=== PATIENT | male | born 1935 | race Caucasian/White ===

== ENCOUNTER 2018-02-27 09:53 | Emergency (ER) | payer BC, OTHER ==
[2018-02-27 10:26] LABS: Absolute Monocytes 0.8 K/uL (0.1-1.3); Absolute Neutrophil 5.8 K/uL (1.8-8.0); Basophils % 1.5 % (0-1.3); Eosinophils % 10.3 % (0-4.4); Hematocrit 40.8 % (39.6-49.0); Lymphocytes % 20.5 % (15.3-44.8); MPV 9.6 fL (7.6-11.3); Monocytes % 8.5 % (3.3-12.3); RBC Red Blood Cell Count 4.61 M/uL (4.33-5.43)
[2018-02-27 10:32] LABS: Protime INR 1.05
[2018-02-27 10:44] LABS: ALT/SGPT 14 U/L (12-78); AST/SGOT 9 U/L (15-37); Albumin 3.3 g/dL (3.4-5.0); Alkaline Phosphatase 84 U/L (45-117); BUN Blood Urea Nitrogen 29 mg/dL (7-18); Bicarbonate 26 mmol/L (21-32); Bilirubin Direct 0.2 mg/dL (0-0.2); Bilirubin Total 0.4 mg/dL (0.2-1.0); CKMB Creatine Kinase MB 1.3 ng/mL (0.3-3.6); Creatine Phosphokinase 57 U/L (39-308); Glucose Level 188 mg/dL (74-106); Lipase 138 U/L (73-393); Magnesium 2.6 mg/dL (1.8-2.4); NT PRO-BNP 66 pg/mL (<450); Potassium 4.2 mmol/L (3.5-5.1); Protein, Total 7.3 g/dL (6.4-8.2); Sodium Level 139 mmol/L (136-145); Troponin (Emerg Dept Use Only) < 0.02 ng/mL (0.0-0.045)
--- NOTE | 2018-02-27 10:45 | RAD REPORT ---
EXAM DESCRIPTION: CT - CTHCSPWOC - 02/27/2018 10:29 am CLINICAL HISTORY: Trauma, head and neck injury. PAIN COMPARISON: None TECHNIQUE: Axial 5 mm thick images of the head were obtained. Axial 2 mm thick images of the cervical spine were obtained with sagittal and coronal reconstruction images generated and reviewed. All CT scans are performed using dose optimization technique as appropriate and may include automated exposure control or mA/KV adjustment according to patient size. FINDINGS: CT HEAD WITHOUT CONTRAST: No acute hemorrhage, hydrocephalus or extra-axial collection is identified.Moderate brain atrophy is seen.No areas of brain edema or midline shift. The paranasal sinuses and mastoids are clear.The calvarium is intact. CT CERVICAL SPINE WITHOUT CONTRAST: No fracture or subluxation.Multilevel degenerative changes are present involving the lower cervical l evels with disc thinning and posterior osteophyte formation.No prevertebral soft tissues swelling is identified. IMPRESSION: No acute intracranial or cervical spine findings. Moderate lower cervical degenerative changes.
--- NOTE | 2018-02-27 10:50 | RAD REPORT ---
EXAM DESCRIPTION: CT - Thoracic Spine W/o Cont - 02/27/2018 10:29 am CLINICAL HISTORY: Radiculopathy. PAIN COMPARISON: No comparisons TECHNIQUE: Axial CT imaging through the thoracic spine was performed with coronal and sagittal re-fo rmatted images. All CT scans are performed using dose optimization technique as appropriate and may include automated exposure control or mA/KV adjustment according to patient size. FINDINGS: Vertebral body heights and disc spaces are maintained. A compression fracture is not prese nt. Anterior osteophytosis is present in the lower thoracic spine. Thoracic spine alignment is within normal limits. No paraspinal masses or hematoma. Mild opacity is present in the lung bases with a moderate axial hiatal hernia. IMPRESSION: No acute thoracic spine abnormality.
[2018-02-27] MEDS ORDERED: NA CHLORIDE 0.9% 1,000 ML ONE ×2 (10:53→12:52)
[2018-02-27] MEDS ORDERED: HYDROCODONE/APAP 10/325 TAB ONE (10:53)
--- NOTE | 2018-02-27 10:53 | RAD REPORT ---
EXAM DESCRIPTION: CT - Spine Lumbar Wo Con - 02/27/2018 10:29 am CLINICAL HISTORY: Radiculopathy. PAIN COMPARISON: No comparisons TECHNIQUE: Axial noncontrast CT imaging of the lumbar spine was performed with coronal and sagittal re-formatted images. All CT scans are performed using dose optimization technique as appropriate and may include automated exposure control or mA/KV adjustment according to patient size. FINDINGS: Diffuse osteopenia is seen. No acute compression deformity is seen. 6 mm degenerative ante rolisthesis of L4 on 5 is present. Paraspinal tissues are normal in thickness. No paraspinal abscess or hematoma seen. Vacuum disc degeneration is present at several levels including L1-2, L4-5 and L5-S1. Schmorl nodes a re present L4. Prominent lower lumbar degenerative changes with facet hypertrophy. IMPRESSION: No acute lumbar spine abnormality. Moderate lower lumbar degenerative changes.
--- NOTE | 2018-02-27 11:17 | RAD REPORT ---
EXAM DESCRIPTION: RAD - Chest Single View - 02/27/2018 11:11 am CLINICAL HISTORY: TRAUMA Chest pain. COMPARISON: No comparisons FINDINGS: Portable technique limits examination quality. The lungs are grossly clear. The heart is mildly enlarged in size. No displaced fractures. IMPRESSION: Mild cardiomegaly.
--- NOTE | 2018-02-27 12:48 | ER ---
Nurse's Notes [facility] Name: Lee Bolanos Age: 82 yrs Sex: Male : 1935 Arrival Date: 02/27/2018 Time: 10:05 Bed 2 Private MD: Diagnosis: Syncope and collapse Presentation: 02/27 10:07 Presenting complaint: EMS states: He was at the [place], standing and got short of breath jl7 and lightheaded, fell back and hit his head. Unsure of LOC. BP 80/40. Care prior to arrival: None. Mechanism of Injury: Fall from standing position. Trauma event details: Injury occurred in the [facility], Injury occurred: in a public building. Injury occurred: February 27, 2018. 10:07 Acuity: DAHLIA 2 jl7 10:07 Method Of Arrival: EMS: [facility] jl7 10:10 Transition of care: patient was received from another setting of care (ambulatory [facility]), [place] clinic. Onset of symptoms was February 27, 2018. Risk Assessment: Do you want to hurt yourself or someone else? Patient reports no desire to harm self or others. Initial Sepsis Screen: Does the patient meet any 2 criteria? Systolic BP < 90 mmHg. HR > 90 bpm. Yes Does the patient have a suspected source of infection? No. Patient's initial sepsis screen is negative. Trauma Activation: Alert Physician: ED Physician; Name: Robertkyaeleanor; Notified At: 09:55; Arrived At: 09:55 Physician: General Surgeon; Name: ; Notified At: 09:55; Arrived At: Physician: Radiology; Name: ; Notified At: 09:55; Arrived At: 09:55 Physician: Respiratory; Name: ; Notified At: 09:55; Arrived At: Physician: Lab; Name: Domenica; Notified At: 09:55; Arrived At: 09:56 Historical: - Allergies: 10:19 No Known Allergies; jl7 - Home Meds: 10:36 furosemide 80 mg Oral tab 1 tab 2 times per day [Active]; carvedilol 25 mg oral tab 1 jl7 tab 2 times per day [Active]; dicyclomine 20 mg Oral tab 1 tab 3 times per day [Active]; finasteride 5 mg oral tab 1 tab once daily [Active]; simvastatin 20 mg Oral tab 1 tab once daily [Active]; valsartan 40 mg oral tab 1 tab 2 times per day [Active]; Klor-Con 10 10 mEq Oral TbER 1 tab once daily [Active]; glipizide 10 mg Oral tab 1 tab once daily [Active]; tamsulosin 0.4 mg oral cp24 1 cap once daily [Active]; spironolactone 25 mg Oral tab 1 tab once daily [Active]; pantoprazole 40 mg oral TbEC 1 tab once daily [Active]; duloxetine 60 mg oral cpDR 1 cap once daily [Active]; clopidogrel 75 mg oral tab 1 tab once daily [Active]; - PMHx: 10:19 Hypertension; Hyperlipidemia; jl7 10:36 BPH; Diabetes - NIDDM; jl7 - Immunization history:: Adult Immunizations up to date. - Social history:: Patient/guardian denies using alcohol, street drugs, The patient lives with family, Smoking status: Patient/guardian denies using tobacco. - Immunization history: Last tetanus immunization: unknown. - Family history:: not pertinent. - Ebola Screening: : No symptoms or risks identified at this time. Screenin:51 Abuse screen: Denies threats or abuse. Denies injuries from another. Tuberculosis jl7 screening: No symptoms or risk factors identified. 10:00 Nutritional screening: No deficits noted. Fall Risk Fall in past 12 months (25 points). jl7 IV access (20 points). Total [place] Fall Scale indicates High Risk Score (45 or more points). Fall prevention measures have been instituted. Side Rails Up X 2 Placed Close to Nursing Station Frequent Obs/Assessments Occuring As available patient and family educated on Fall Prevention Program and Strategies. Primary Survey: 10:00 NO uncontrolled hemorrhage observed. Breathing/Chest: Respiratory pattern: regular, jl7 Respiratory effort: spontaneous, unlabored, Breath sounds: clear, bilaterally. Chest inspection: symmetrical rise and fall of the chest. Circulation: Heart tones present. Skin color: pink. Disability Alert. Exposure/Environment: There is no evidence of uncontrolled external bleeding. 10:15 Reassessment Airway Airway Breathing/Chest Respiratory pattern Regular Respiratory jl7 effort Spontaneous Unlabored Breath sounds Clear Diminished Chest inspection Symmetrical Circulation Heart tones Present Color [place] Disability Alert. Assessment: 10:07 General: Appears in no apparent distress. uncomfortable, Behavior is calm, cooperative, jl7 appropriate for age. Pain:. Pain: Complains of pain in right lower quadrant and left lower quadrant Pain does not radiate. Pain currently is 6 out of 10 on a pain scale. Is continuous. Neuro: Level of Consciousness is awake, alert, obeys commands, Oriented to person, place, time, situation. EENT: No signs and/or symptoms were reported regarding the EENT system. Cardiovascular: Heart tones S1 S2 present Patient's skin is warm and dry. Rhythm is regular. Respiratory: Airway is patent Respiratory effort is even, unlabored, Respiratory pattern is regular, symmetrical, Breath sounds are clear bilaterally. GI: Abdomen is flat, non-distended, Stools are reported to be normal. Last BM at 02:30. Bowel sounds present X 4 quads. Abd is soft X 4 quads Abdomen is tender to palpation in left upper quadrant and left lower quadrant. : No signs and/or symptoms were reported regarding the genitourinary system. Derm: Skin is pink, warm \T\ dry. Musculoskeletal: No signs and/or symptoms reported regarding the musculoskeletal system. 10:32 Reassessment: Pt returned from CT. jl7 10:45 Reassessment: Pt requesting hydrocodone-acetaminophen 10-325mg for his chronic neck, jl7 low back and right knee pain, ERD notified, see MAR for orders. 11:00 Reassessment: pt unable to provide urine sample at this time. jl7 12:00 Reassessment: Patient appears in no apparent distress at this time. No changes from jl7 previously documented assessment. Patient and/or family updated on plan of care and expected duration. Pain level reassessed. Patient is alert, oriented x 3, equal unlabored respirations, skin warm/dry/pink. 13:00 Reassessment: Patient and/or family updated on plan of care and expected duration. Pain jl7 level reassessed. Patient is alert, oriented x 3, equal unlabored respirations, skin warm/dry/pink. Vital Signs: 09:51 BP 72 / 45 LA; Pulse 115; Resp 17 S; Temp 97.5(O); Pulse Ox 97% on R/A; Weight 117.93 jl7 kg (R); Height 6 ft. 2 in. (187.96 cm) (R); Pain 6/10; 10:00 BP 82 / 57 RA; jl7 10:30 BP 86 / 74; Pulse 93; Resp 14 S; Pulse Ox 95% on R/A; jl7 11:30 BP 76 / 56; Pulse 102; Resp 16 S; Pulse Ox 95% on R/A; jl7 11:59 BP 90 / 57; Pulse 99; Resp 16 S; Pulse Ox 95% on R/A; jl7 13:00 BP 88 / 56; Pulse 79; Resp 16 S; Pulse Ox 95% on R/A; jl7 13:46 BP 88 / 72; Pulse 78; Resp 16 S; Pulse Ox 95% on R/A; jl7 09:51 Body Mass Index 33.38 (117.93 kg, 187.96 cm) jl7 Logan Coma Score: 09:51 Eye Response: spontaneous(4). Verbal Response: oriented(5). Motor Response: obeys jl7 commands(6). Total: 15. Trauma Score (Adult): 09:51 Eye Response: spontaneous(1); Verbal Response: oriented(1); Motor Response: obeys jl7 commands(2); Systolic BP: > 89 mm Hg(4); Respiratory Rate: 10 to 29 per min(4); Logan Score: 15; Trauma Score: 12 10:00 Eye Response: spontaneous(1); Verbal Response: oriented(1); Motor Response: obeys jl7 commands(2); Systolic BP: > 89 mm Hg(4); Respiratory Rate: 10 to 29 per min(4); Brody Score: 15; Trauma Score: 12 10:30 Eye Response: spontaneous(1); Verbal Response: oriented(1); Motor Response: obeys jl7 commands(2); Systolic BP: > 89 mm Hg(4); Respiratory Rate: 10 to 29 per min(4); Brody Score: 15; Trauma Score: 12 13:00 Eye Response: spontaneous(1); Verbal Response: oriented(1); Motor Response: obeys jl7 commands(2); Systolic BP: > 89 mm Hg(4); Respiratory Rate: 10 to 29 per min(4); Brody Score: 15; Trauma Score: 12 ED Course: 09:51 Patient maintains SpO2 saturation greater than 95% on room air. Thermoregulation: warm jl7 blanket given to patient. 09:51 Patient has correct armband on for positive identification. Placed in gown. Bed in low jl7 position. Call light in reach. Side rails up X2. 10:00 quality assurance monitor on. Pulse ox on. NIBP on. Warm blanket given. jl7 10:05 Patient arrived in ED. jl7 10:05 EKG done, by eeg technologist. reviewed by Giovana Suarez MD. sm3 10:08 Giovana Suarez MD is Attending Physician. ma2 10:10 Triage completed. jl7 10:10 Arm band placed on right wrist. jl7 10:14 Inserted saline lock: 22 gauge in left antecubital area, using aseptic technique. jb1 10:14 Initial lab(s) drawn, by me, sent to lab. Inserted saline lock: 20 gauge in right jb1 antecubital area, using aseptic technique. Blood collected. 10:27 Laura Hilliard, RN is Primary Nurse. jl7 10:29 CT Head C Spine In Process Unspecified. EDMS 10:29 CT Thoracic Spine Wo Cont In Process Unspecified. EDMS 10:29 CT Lumbar Spine Wo Con In Process Unspecified. EDMS 11:11 X-ray completed. Portable x-ray completed in exam room. Patient tolerated procedure tm4 well. 11:12 XRAY Chest (1 view) In Process Unspecified. EDMS 12:00 Inserted saline lock: 20 gauge in right wrist, using aseptic technique. jl7 12:00 No provider procedures requiring assistance completed. jl7 14:25 Patient transferred, IV remains in place. intact, No redness/swelling at site. jl7 Administered Medications: 10:51 Drug: NS 0.9% 1000 ml Route: IV; Rate: 1 bolus; Site: right antecubital; jl7 12:00 Follow up: IV Status: Completed infusion jl7 10:52 Drug: [place] 10 mg-325 mg 1 tabs Route: PO; jl7 11:50 Follow up: Response: No adverse reaction; Pain is decreased jl7 13:08 Drug: NS 0.9% 1000 ml Route: IV; Rate: 1 bolus; Site: right wrist; jl7 Intake: 11:59 IV: 1000ml; Total: 1000ml. jl7 13:47 IV: 1000ml; Total: 2000ml. jl7 Outcome: 12:47 ER care complete, transfer ordered by MD. ibrahim 13:49 Transferred by ground EMS to other acute care facility, Transfer form completed. jl7 13:49 Condition: stable 13:49 Discharge instructions given to patient, Instructed on the need for admit, Demonstrated understanding of instructions. 14:25 Patient's length of stay was not longer than 2 hours. jl7 14:26 Patient left the ED. jl7 Signatures: Dispatcher [employer] EDMS Jed Guzman jb1 Christelle Hanley tm4 Laura Hilliard RN RN jl7 Giovana Suarez MD MD ma2 Jody Sheppard 3 Corrections: (The following items were deleted from the chart) 12:30 11:59 BP 76 / 56; Pulse 102bpm; Resp 16bpm; Spontaneous; Pulse Ox 95% RA; jl7 jl7
--- NOTE | 2018-02-27 12:48 | EDPHYS ---
Physician Documentation [facility] Name: Lee Bolanos Age: 82 yrs Sex: Male : 1935 Arrival Date: 02/27/2018 Time: 10:05 Bed 2 Private MD: ED Physician Giovana Suarez HPI: 02/27 10:12 This 82 yrs old Male presents to ER via EMS with complaints of Fall Injury. ma2 10:12 Details of fall: The patient fell from an upright position, from a supine position. ma2 Onset: The symptoms/episode began/occurred suddenly, gradually, 1 hour(s) ago. Associated injuries: The patient sustained injury to the head, neck injury, injury to the low back. Severity of symptoms: At their worst the symptoms were moderate, in the emergency department the symptoms are unchanged. The patient has experienced similar episodes in the past. Historical: - Allergies: 10:19 No Known Allergies; jl7 - Home Meds: 10:36 furosemide 80 mg Oral tab 1 tab 2 times per day [Active]; carvedilol 25 mg oral tab 1 jl7 tab 2 times per day [Active]; dicyclomine 20 mg Oral tab 1 tab 3 times per day [Active]; finasteride 5 mg oral tab 1 tab once daily [Active]; simvastatin 20 mg Oral tab 1 tab once daily [Active]; valsartan 40 mg oral tab 1 tab 2 times per day [Active]; Klor-Con 10 10 mEq Oral TbER 1 tab once daily [Active]; glipizide 10 mg Oral tab 1 tab once daily [Active]; tamsulosin 0.4 mg oral cp24 1 cap once daily [Active]; spironolactone 25 mg Oral tab 1 tab once daily [Active]; pantoprazole 40 mg oral TbEC 1 tab once daily [Active]; duloxetine 60 mg oral cpDR 1 cap once daily [Active]; clopidogrel 75 mg oral tab 1 tab once daily [Active]; - PMHx: 10:19 Hypertension; Hyperlipidemia; jl7 10:36 BPH; Diabetes - NIDDM; jl7 - Immunization history:: Adult Immunizations up to date. - Social history:: Patient/guardian denies using alcohol, street drugs, The patient lives with family, Smoking status: Patient/guardian denies using tobacco. - Immunization history: Last tetanus immunization: unknown. - Family history:: not pertinent. - Ebola Screening: : No symptoms or risks identified at this time. ROS: 10:12 Constitutional: Negative for fever, chills, and weight loss, Neck: Negative for injury, ma2 pain, and swelling, Respiratory: Negative for shortness of breath, cough, wheezing, and pleuritic chest pain, Abdomen/GI: Negative for abdominal pain, nausea, diarrhea, and constipation, Allergy/Immunology: Negative for hives, rash, and allergies, Endocrine: Negative for neck swelling, polydipsia, polyuria, polyphagia, and marked weight changes. 10:12 Cardiovascular: Positive for syncope, Negative for chest pain, edema, orthopnea, palpitations, paroxysmal nocturnal dyspnea, acute changes. 10:12 All other systems are negative. Exam: 10:12 Constitutional: This is a well developed, well nourished patient who is awake, alert, ma2 and in no acute distress. Chest/axilla: Normal chest wall appearance and motion. Nontender with no deformity. No lesions are appreciated. Cardiovascular: Regular rate and rhythm with a normal S1 and S2. No gallops, murmurs, or rubs. Normal PMI, no JVD. No pulse deficits. Respiratory: Lungs have equal breath sounds bilaterally, clear to auscultation and percussion. No rales, rhonchi or wheezes noted. No increased work of breathing, no retractions or nasal flaring. Abdomen/GI: Soft, non-tender, with normal bowel sounds. No distension or tympany. No guarding or rebound. No evidence of tenderness throughout. MS/ Extremity: Pulses equal, no cyanosis. Neurovascular intact. Full, normal range of motion. Neuro: Awake and alert, GCS 15, oriented to person, place, time, and situation. Cranial nerves II-XII grossly intact. Motor strength 5/5 in all extremities. Sensory grossly intact. Cerebellar exam normal. Normal gait. Vital Signs: 09:51 BP 72 / 45 LA; Pulse 115; Resp 17 S; Temp 97.5(O); Pulse Ox 97% on R/A; Weight 117.93 jl7 kg (R); Height 6 ft. 2 in. (187.96 cm) (R); Pain 6/10; 10:00 BP 82 / 57 RA; jl7 10:30 BP 86 / 74; Pulse 93; Resp 14 S; Pulse Ox 95% on R/A; jl7 11:30 BP 76 / 56; Pulse 102; Resp 16 S; Pulse Ox 95% on R/A; jl7 11:59 BP 90 / 57; Pulse 99; Resp 16 S; Pulse Ox 95% on R/A; jl7 13:00 BP 88 / 56; Pulse 79; Resp 16 S; Pulse Ox 95% on R/A; jl7 13:46 BP 88 / 72; Pulse 78; Resp 16 S; Pulse Ox 95% on R/A; jl7 09:51 Body Mass Index 33.38 (117.93 kg, 187.96 cm) jl7 Brody Coma Score: 09:51 Eye Response: spontaneous(4). Verbal Response: oriented(5). Motor Response: obeys jl7 commands(6). Total: 15. Trauma Score (Adult): 09:51 Eye Response: spontaneous(1); Verbal Response: oriented(1); Motor Response: obeys jl7 commands(2); Systolic BP: > 89 mm Hg(4); Respiratory Rate: 10 to 29 per min(4); Brody Score: 15; Trauma Score: 12 10:00 Eye Response: spontaneous(1); Verbal Response: oriented(1); Motor Response: obeys jl7 commands(2); Systolic BP: > 89 mm Hg(4); Respiratory Rate: 10 to 29 per min(4); Brody Score: 15; Trauma Score: 12 10:30 Eye Response: spontaneous(1); Verbal Response: oriented(1); Motor Response: obeys jl7 commands(2); Systolic BP: > 89 mm Hg(4); Respiratory Rate: 10 to 29 per min(4); Brody Score: 15; Trauma Score: 12 13:00 Eye Response: spontaneous(1); Verbal Response: oriented(1); Motor Response: obeys jl7 commands(2); Systolic BP: > 89 mm Hg(4); Respiratory Rate: 10 to 29 per min(4); Brody Score: 15; Trauma Score: 12 MDM: 10:09 Patient medically screened. [facility] 10:12 Differential diagnosis: closed head injury, sprain, strain, syncope. [facility] 11:27 Data reviewed: vital signs, nurses notes. Counseling: I had a detailed discussion with ma2 the patient and/or guardian regarding: the historical points, exam findings, and any diagnostic results supporting the discharge/admit diagnosis, the presence of at least one elevated blood pressure reading (>120/80) during this emergency department visit. 11:42 ED course: need syncope workup admission, map 70.. patient want to be transferred to [address] for continuity of care.. i attempt calling his technical education teacher dr. shah and pcp dr khan.. with no answers. . ED course: transfer initiated . 02/27 10:12 Order name: Basic Metabolic Panel; Complete Time: 10:54 ma2 02/27 10:12 Order name: CBC with Diff; Complete Time: 10:54 ma2 02/27 10:12 Order name: LFT's; Complete Time: 10:54 ma2 02/27 10:12 Order name: Magnesium; Complete Time: 10:54 ma2 02/27 10:12 Order name: NT PRO-BNP; Complete Time: 10:54 ma2 02/27 10:12 Order name: PT-INR; Complete Time: 10:54 ma2 02/27 10:12 Order name: Troponin (emerg Dept Use Only); Complete Time: 10:54 ma2 02/27 10:12 Order name: XRAY Chest (1 view); Complete Time: 11:27 ma2 02/27 10:12 Order name: CT Head C Spine; Complete Time: 10:54 ma2 02/27 10:12 Order name: Ckmb; Complete Time: 10:54 ma2 02/27 10:12 Order name: CPK; Complete Time: 10:54 ma2 02/27 10:12 Order name: Lipase; Complete Time: 10:54 ma2 02/27 10:12 Order name: Ptt, Activated; Complete Time: 10:54 ma2 02/27 10:17 Order name: Glucose, Ancillary Testing; Complete Time: 10:28 EDMS 02/27 10:12 Order name: EKG; Complete Time: 10:13 ma2 02/27 10:12 Order name: Cardiac monitoring; Complete Time: 10:14 ma2 02/27 10:12 Order name: EKG - Nurse/Tech; Complete Time: 10:40 ma2 02/27 10:12 Order name: IV Saline Lock; Complete Time: 10: ma2 02/27 10:12 Order name: Labs collected and sent; Complete Time: 10:14 ma2 02/27 10:12 Order name: O2 Per Protocol; Complete Time: 10: ma2 02/27 10:12 Order name: O2 Sat Monitoring; Complete Time: 10:14 ma2 02/27 10:12 Order name: NPO; Complete Time: 10:14 ma2 02/27 10:12 Order name: CT Thoracic Spine Wo Cont; Complete Time: 10:54 ma2 02/27 10:12 Order name: CT Lumbar Spine Wo Con; Complete Time: 10:54 ma2 Administered Medications: 10:51 Drug: NS 0.9% 1000 ml Route: IV; Rate: 1 bolus; Site: right antecubital; jl7 12:00 Follow up: IV Status: Completed infusion jl7 10:52 Drug: [place] 10 mg-325 mg 1 tabs Route: PO; jl7 11:50 Follow up: Response: No adverse reaction; Pain is decreased jl7 13:08 Drug: NS 0.9% 1000 ml Route: IV; Rate: 1 bolus; Site: right wrist; jl7 Disposition: 02/27/18 12:47 Transfer ordered to Other Acute Care Facility. Diagnosis is Syncope and collapse. - Reason for transfer: Patient request. - Accepting physician is accepted by dr. Jessica. - Condition is Stable. - Problem is new. - Symptoms are unchanged. Signatures: Dispatcher [employer] [facility] Laura Hilliard RN RN jl7 Giovana Suarez MD MD ma2 Corrections: (The following items were deleted from the chart) 10:29 10:13 Head Brain Wo Cont+CT.RAD.BRZ ordered. [facility] 14:26 12:47 02/27/2018 12:47 Transfer ordered to Other Acute Care Facility. Diagnosis is jl7 Syncope and collapse. Reason for transfer: Patient request. Accepting physician is accepted by dr. Jessica. Condition is Stable. Problem is new. Symptoms are unchanged. ma2
--- NOTE | 2018-02-27 15:35 | EKG ---
Test Date: 2018-02-27 Test Time: 09:59:12 [facility] Associate: JOEY MEASUREMENT RESULTS: Intervals: Rate: 116 MA: QRSD: 148 QT: 366 QTc: 508 Hickman: P: MA: QRS: 83 T: 35 INTERPRETIVE STATEMENTS: afib Right bundle branch block Inferior infarct, age undetermined Abnormal ECG Compared to ECG 10/26/2003 09:35:00 Right bundle-branch block now present Myocardial infarct finding now present Sinus rhythm no longer present First degree AV block no longer present Electronically Signed On 02-27-18 15:34:32 [employer]CH[employer] SUPERVIS[employer] by Chetan Hunt
== END 2018-02-27 14:26 ==
LOC: ER 09:53
DX: R55 Syncope and collapse (principal); I10 Essential (primary) hypertension; E78.5 Hyperlipidemia, unspecified; E11.9 Type 2 diabetes mellitus without complications
CPT/HCPCS: 36415; 70450; 71045; 72125; 72128; 72131; 80048; 80076; 82550; 82553; 82962; 83690; 83735; 83880; 84484; 85025; 85610; 85730; 93005; 96360; 99285; J7030